=== PATIENT | male | born 1995 | race Caucasian/White ===

== ENCOUNTER 2017-10-01 10:22 | Emergency (ER) | payer BC ==
[2017-10-01] MEDS ORDERED: Albuterol/Ipratropium NEB.SOL* Albuterol 2.5 MG/Ipratropium 0.5 MG 3 ML INH ONE (10:58)
--- NOTE | 2017-10-01 11:05 | ED ---
Asthma - HPI Summary HPI Summary: 22 yr old male with sore throat for two weeks, and feels SOB with some coughing the past two weeks. 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 He states he is not doing real strenuous work outs at this time of the year but he feels winded running during workouts. He denies a prior history of asthma. He denies smoking. he has not had CP, or palpitations. he has not felt dizzy or light headed. he has no other complaints. - History of Current Complaint Chief Complaint: UCRespiratory Stated Complaint: THROAT,SOB Time Seen by Provider: 10/01/17 10:45 - Allergy/Home Medications Allergies/Adverse Reactions: Allergies Allergy/AdvReac Type Severity Reaction Status Date / Time No Known Allergies Allergy Verified 10/01/17 10:49 Home Medications: Home Medications [id number] [Nyquil Severe Cold/Flu 5-6.25-10-325 mg/15Ml] 1 liq PO QPM PRN 10/01/17 [History Confirmed 10/01/17] PMH/Surg Hx/FS Hx/Imm Hx Previously Healthy: Yes - Surgical History Hx Anesthesia Reactions: No Infectious Disease History: No Infectious Disease History: Denies: Traveled Outside the [place] in Last 30 Days - Family History Known Family History: Positive: None - Social History Occupation: Student Alcohol Use: None Substance Use Type: Reports: None Smoking Status (MU): Never Smoked Tobacco Review of Systems Constitutional: Negative Positive: Sore Throat Positive: Shortness Of Breath, Cough All Other Systems Reviewed And Are Negative: Yes Physical Exam Triage Information Reviewed: Yes Vital Signs On Initial Exam: Initial Vitals Temp Pulse Resp BP Pulse Ox 98.7 F 65 18 148/82 100 10/01/17 10:42 10/01/17 10:42 10/01/17 10:42 10/01/17 10:42 10/01/17 10:42 Vital Signs Reviewed: Yes Appearance: Positive: Well-Appearing, No Pain Distress Skin: Positive: Warm, Skin Color Reflects Adequate Perfusion Head/Face: Positive: Normal Head/Face Inspection Eyes: Positive: EOMI ENT: Positive: Pharyngeal erythema, TMs normal. Negative: Tonsillar swelling Neck: Positive: Supple Respiratory/Lung Sounds: Positive: Clear to Auscultation, Breath Sounds Present Cardiovascular: Positive: RRR. Negative: Murmur, Rub Abdomen Description: Positive: Nontender Musculoskeletal: Positive: Strength/ROM Intact Neurological: Positive: Sensory/Motor Intact, Alert, Oriented to Person Place, Time, CN Intact II-III Psychiatric: Positive: Normal - Tadeo Coma Scale Best Eye Response: 4 - Spontaneous Best Motor Response: 6 - Obeys Commands Best Verbal Response: 5 - Oriented Diagnostics - Vital Signs Vital Signs Temp Pulse Resp BP Pulse Ox 10/01/17 10:42 98.7 F 65 18 148/82 100 - Laboratory Lab Statement: Any lab studies that have been ordered have been reviewed, and results considered in the medical decision making process. - Radiology chest xray Radiology Interpretation Completed By: Radiologist - EKG 10/01/17 Cardiac Rate: NL EKG Rhythm: Sinus Rhythm Ectopy: None - Additional Comments Diagnostic Additional Comments: He has J point elevation, and increased voltages. The increased voltage could be LVH, but also relative due to thin person. 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 he has some hyperinflation on chest xray. EKG shows increased voltages with possible LVH but he is also a very thin runner with not a thick chest wall. His pre and post neb peak flows were not that much different. He has no CP, dizziness, syncope at all. No family history of congenital heart disease. I have discussed that he needs to see cardiology for follow up to get an echocardiogram. I have attempted to [place] Paz who is quality control industrial engineer [place] [facility] [place] not had a return to my pages yet. The patient knows he is not to do his running work outs until cleared by cardiology , and he also is aware he may need evaluation for exercise induced asthma as well in his follow up. He is comfortable now and has no symptoms going about his daily routine except with running work out. He is safe for dc from here for follow up as an outpatient for further evaluation. - Diagnoses Provider Diagnoses: Shortness of breath, URI (upper respiratory infection), Hypertension, possible ventricular hypertrophy Discharge - Discharge Plan Condition: Good Disposition: HOME Patient Education Materials: Asthma (ED), Hypertension (ED) Referrals: No Primary Care Phys,NOPCP [Primary Care Provider] - Paz,Eb K, MD [Medical Doctor] - 2 Days [facility] [facility] [Outside] Additional Instructions: You should follow up with [facility] office at [facility] on Tuesday and your blood pressure needs to be rechecked. You will need to see cardiology as soon as possible for echocardiogram. Your EKG may indicate you have ventricular septal enlargement. You may also need to have pulmonary function tests done as well to assess you further for exercise induced asthma if cardiology feels you have no issues from their standpoint. Do not do your running work outs until cleared by cardiology. If you feel light headed, dizzy or develop chest pain go to the ER. If you are short of breath when just resting go to the ER.
--- NOTE | 2017-10-01 11:28 | RAD ---
Indication: Chest pain. 2 views of the chest including dual energy PA views demonstrates hyperinflated lung perez. No pleural fluid, pneumonia or pneumothorax is noted. IMPRESSION: Hyperinflated lung perez without evidence of pneumonia.
== END 2017-10-01 12:37 | disposition home or self-care (01) ==
LOC: UCCORT 10:22
DX: J06.9 Acute upper respiratory infection, unspecified (principal); R06.02 Shortness of breath; I10 Essential (primary) hypertension
CPT/HCPCS: 71046; 87651; 93005; 99202; A9270-GY; G0463

== ENCOUNTER 2018-05-08 07:43 | Emergency (ER) | payer BC ==
[2018-05-08 08:10] VITALS: BP 119/74
--- NOTE | 2018-05-08 08:22 | UC ---
Skin Complaint HPI - HPI Summary HPI Summary: States he was exposed to a pritchett that looks like poison sumac in his yard. He works in [employer] as well and several days ago he noticed a rash on both forearms that has been extending to hands, elbows. He states hydrocort relieves it but itch is intense at night and benadryl does not help. Denies dysphagia, SOB or wheezing - History of Current Complaint Chief Complaint: UCRas Time Seen by Provider: 05/08/18 07:55 Stated Complaint: SKIN COMPLAINT Hx Obtained From: Patient Onset/Duration: Sudden Onset, Lasting Days Skin Exposure Onset/Duration: Days Ago Onset Severity: Mild Current Severity: Moderate Pain Intensity: 0 Location: Discrete Character: Pruritus, Redness Aggravating Factor(s): Nothing Alleviating Factor(s): OTC Meds Associated Signs & Symptoms: Positive: Negative Related History: Possible Reaction to: Environmental Exposure - Allergy/Home Medications Allergies/Adverse Reactions: Allergies Allergy/AdvReac Type Severity Reaction Status Date / Time No Known Allergies Allergy Verified 05/08/18 07:55 Home Medications: Home Medications Hydrocortisone 1% CREAM* [Hytone (Topical) 1%*] 1 applic TOPICAL ONCE PRN [History Confirmed 05/08/18] Review of Systems Constitutional: Negative Skin: Rash Eyes: Negative ENT: Negative Respiratory: Negative Cardiovascular: Negative Gastrointestinal: Negative Genitourinary: Negative Neurological: Negative All Other Systems Reviewed And Are Negative: Yes PMH/Surg Hx/FS Hx/Imm Hx Previously Healthy: Yes - Surgical History Surgical History: None - Family History Known Family History: Positive: Hypertension - Social History Alcohol Use: Occasionally Substance Use Type: None Smoking Status (MU): Never Smoked Tobacco Physical Exam Triage Information Reviewed: Yes Vital Signs: Initial Vital Signs Temp 98.7 F 05/08/18 07:52 Pulse 62 05/08/18 07:52 Resp 14 05/08/18 07:52 BP 142/70 05/08/18 07:52 Pulse Ox 100 05/08/18 07:52 Neck: Positive: Supple Respiratory: Positive: Chest non-tender, Lungs clear, Normal breath sounds Cardiovascular: Positive: RRR, No Murmur, Pulses Normal, Brisk Capillary Refill Abdomen Description: Positive: Nontender, No Organomegaly, Soft Skin: Positive: rashes - papular rash most prominent on ventral surface of forearms, elbows, dorsum of hands Course/Dx - Course Course Of Treatment: start medication for reaction to poison sumac exposure. Discussed duration of therapy and possible side effects of prednisone. BP was normal on repeat measurement - Diagnoses Provider Diagnoses: Poison sumac exposure-allergic reaction. Elevated BP without history of HTN Discharge - Sign-Out/Discharge Documenting (check all that apply): Patient Departure All imaging exams completed and their final reports reviewed: No Studies - Discharge Plan Condition: Stable Disposition: HOME Prescriptions: Clobetasol 0.05% OINT* 1 applic TOPICAL BID 7 Days #1 tube predniSONE TAB* [Deltasone 20 MG TAB*] 40 mg PO DAILY 5 Days #10 tab Patient Education Materials: Poison [place] (ED), Prednisone (By mouth), Clobetasol Propionate (On the skin) Referrals: No Primary Care Phys,NOPCP [Primary Care Provider] - [facility] [place] [facility] [place] Additional Instructions: please use cream ONLY twice a day no more than 7 days - Billing Disposition and Condition Condition: STABLE Disposition: Home
== END 2018-05-08 08:21 | disposition home or self-care (01) ==
LOC: UCCORT 07:43
DX: L23.7 Allergic contact dermatitis due to plants, except food (principal); T63.791A Toxic effect of contact with other venomous plant, accidental (unintentional), initial encounter; Y92.89 Other specified places as the place of occurrence of the external cause
CPT/HCPCS: 99212; G0463